=== PATIENT | male | born 2000 ===

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

== ENCOUNTER 2018-05-17 15:50 | Emergency (ER) | payer MEDICAID, OTHER ==
[2018-05-17 15:53] VITALS: BMI 17.9
[2018-05-17 15:57] VITALS: BP 108/70; PULSE 95; RESP 18; TEMP 99.1; O2SAT 98
--- NOTE | 2018-05-17 16:10 | C.PDOC ---
Time Seen by Provider: 05/17/18 15:58 Chief Complaint (Nursing): Dental Pain Past Medical History Vital Signs: Last Vital Signs Temp 99.1 F 05/17/18 15:54 Pulse 95 H 05/17/18 15:54 Resp 18 05/17/18 15:54 BP 108/70 05/17/18 15:54 Pulse Ox 98 05/17/18 15:54 Surgical History: Appendectomy - [facility] Procedures RESECTION OF APPENDIX, PERCUTANEOUS ENDOSCOPIC APPROACH (08/03/16) Family History: States: Unknown Family Hx - Social History Hx Tobacco Use: No Hx Alcohol Use: Yes Hx Substance Use: No - Immunization History Hx Tetanus Toxoid Vaccination: No Hx Influenza Vaccination: No Hx Pneumococcal Vaccination: No ED Course And Treatment O2 Sat by Pulse Oximetry: 98 Disposition - Disposition
--- NOTE | 2018-05-17 16:14 | C.PDOC ---
History Of Present Illness Pt c/o right jaw area pain. Denies recent injury. He states that he feels a clicking in that area for a long time, but pain started yesterday. Time Seen by Provider: 05/17/18 15:58 Chief Complaint (Nursing): ENT Problem History Per: Patient Onset/Duration Of Symptoms: Days (1) Current Symptoms Are (Timing): Still Present Severity: Moderate Past Medical History Reviewed: Historical Data, Nursing Documentation, Vital Signs Vital Signs: Last Vital Signs Temp 99.1 F 05/17/18 15:54 Pulse 95 H 05/17/18 15:54 Resp 18 05/17/18 15:54 BP 108/70 05/17/18 15:54 Pulse Ox 98 05/17/18 15:54 - Medical History PMH: No Chronic Diseases Surgical History: Appendectomy - [facility] Procedures RESECTION OF APPENDIX, PERCUTANEOUS ENDOSCOPIC APPROACH (08/03/16) Family History: States: Unknown Family Hx - Social History Hx Tobacco Use: No Hx Alcohol Use: Yes Hx Substance Use: No - Immunization History Hx Tetanus Toxoid Vaccination: No Hx Influenza Vaccination: No Hx Pneumococcal Vaccination: No Review Of Systems Except As Marked, All Systems Reviewed And Found Negative. Constitutional: Negative for: Fever, Weakness ENT: Negative for: Ear Discharge, Throat Pain Cardiovascular: Negative for: Chest Pain Respiratory: Negative for: Shortness of Breath Gastrointestinal: Negative for: Vomiting, Abdominal Pain Musculoskeletal: Negative for: Neck Pain Skin: Negative for: Rash Neurological: Negative for: Weakness, Numbness, Headache Physical Exam - Physical Exam Appears: Non-toxic, No Acute Distress Skin: Normal Color, Warm, Dry, No Rash 1 - Pain at TMJ area when opening mouth. No tenderness. Head: Atraumatic, Normacephalic Eye(s): bilateral: Normal Inspection, PERRL, EOMI Ear(s): Right: Normal Oral Mucosa: Moist, No Drooling, No Trismus Tongue: Normal Appearing Lips: Normal Appearing Teeth: No Tender To Palpation Gingiva: Normal Appearing, No Abscess Throat: Normal Neck: Normal ROM, Supple Lymphatic: No Adenopathy Extremity: Normal ROM Neurological/Psych: Oriented x3, Normal Speech, Normal Cognition, Normal Cranial Nerves, Normal Motor, Normal Sensation ED Course And Treatment O2 Sat by Pulse Oximetry: 98 Pulse Ox Interpretation: Normal Disposition Counseled Patient/Family Regarding: Diagnosis, Need For Followup, Rx Given - Disposition Referrals: [facility] at [facility] [Outside] Disposition: HOME/ ROUTINE Disposition Time: 16:16 Condition: STABLE Additional Instructions: Follow up with an Oral MaxilloFacial Surgeon or in the clinic for further evaluation and treatment. Return to the ER if you develop worsening of symptoms or if you have any other concerns. Prescriptions: Naproxen 375 mg PO BID PRN #30 tablet PRN Reason: Pain, Moderate (4-7) Instructions: Temporomandibular Joint (TMJ) Disorders (DC) - Clinical Impression Clinical Impression: Disorder of right temporomandibular joint
== END 2018-05-17 16:27 | disposition home or self-care (01) ==
LOC: C.ER 15:50
DX: M26.601 Right temporomandibular joint disorder, unspecified (principal)

== ENCOUNTER 2018-06-13 20:48 | Emergency (ER) | payer MEDICAID, OTHER ==
[2018-06-13 20:49] VITALS: BMI 17.9
[2018-06-13 21:00] VITALS: BP 100/64; PULSE 83; RESP 20; TEMP 98; O2SAT 98
--- NOTE | 2018-06-13 21:30 | C.PDOC ---
History Of Present Illness 18 y/o male c/o throat pain x 2 days, left side worse than right. with no fever , pt used spray in throat; did not take any antibiotics at home contrary to triage. denies fever, chills, cough, ear pain, rhinorrhea. no sick contacts. Time Seen by Provider: 06/13/18 21:00 Chief Complaint (Nursing): ENT Problem History Per: Patient History/Exam Limitations: None Onset/Duration Of Symptoms: Days (2) Current Symptoms Are (Timing): Still Present Quality (Mouth/Throat): Redness Past Medical History Reviewed: Historical Data, Nursing Documentation, Vital Signs Vital Signs: Last Vital Signs Temp 98 F 06/13/18 20:57 Pulse 83 06/13/18 20:57 Resp 20 06/13/18 20:57 BP 100/64 06/13/18 20:57 Pulse Ox 98 06/13/18 21:35 - Medical History PMH: No Chronic Diseases Surgical History: Appendectomy - [facility] Procedures RESECTION OF APPENDIX, PERCUTANEOUS ENDOSCOPIC APPROACH (08/03/16) Family History: States: Unknown Family Hx - Social History Hx Tobacco Use: No Hx Alcohol Use: Yes Hx Substance Use: No - Immunization History Hx Tetanus Toxoid Vaccination: No Hx Influenza Vaccination: No Hx Pneumococcal Vaccination: No Review Of Systems Constitutional: Negative for: Fever, Chills ENT: Positive for: Throat Pain. Negative for: Ear Pain, Nose Pain, Nose Discharge, Nose Congestion, Throat Swelling Cardiovascular: Negative for: Chest Pain Respiratory: Negative for: Cough, Shortness of Breath Skin: Negative for: Rash Neurological: Negative for: Weakness, Numbness Physical Exam - Physical Exam Appears: Non-toxic, No Acute Distress Skin: Warm, Dry Head: Atraumatic, Normacephalic Nose: No Discharge Oral Mucosa: Moist Tongue: Normal Appearing Lips: Normal Appearing, No Swelling Teeth: Normal Dentition Gingiva: Normal Appearing Throat: Erythema (pharynx erythematous left enlarged tonsil, no exudate. ) Neck: Supple Lymphatic: Adenopathy (tender left submandibular adenopathy) Cardiovascular: Rhythm Regular, No Murmur Respiratory: No Decreased Breath Sounds, No Wheezing Neurological/Psych: Oriented x3, Normal Speech, Normal Cognition ED Course And Treatment O2 Sat by Pulse Oximetry: 98 Medical Decision Making Medical Decision Makin18 y/o male with sore throat; no fever. rapid strep neg. d/c home with supportive care. Disposition Counseled Patient/Family Regarding: Studies Performed, Diagnosis, Need For Followup, Rx Given - Disposition Referrals: Jovanny Manuel MD [Medical Doctor] - Disposition: HOME/ ROUTINE Disposition Time: 21:32 Condition: GOOD Additional Instructions: Please take Tylenol or ibuprofen for pain if needed every 6 hours. Gargle with warm salty water several times a day. Drink tea with honey and lemon. Follow up with Dr Manuel in 1-2 days. Return to ER for any worsening symptoms. Prescriptions: Acetaminophen [Tylenol 325mg tab] 650 mg PO Q6 #30 tab Instructions: Sore Throat, Adult (DC) Forms: [facility] (Lao), General Discharge Instructions - Clinical Impression Clinical Impression: Pharyngitis
== END 2018-06-13 21:44 | disposition home or self-care (01) ==
LOC: C.ER 20:48
DX: J02.9 Acute pharyngitis, unspecified (principal)

== ENCOUNTER 2018-06-16 05:20 | Emergency (ER) | payer MEDICAID ==
[2018-06-16 05:20] VITALS: BMI 17.9
[2018-06-16 05:29] VITALS: TEMP 98.1
[2018-06-16] MEDS ORDERED: Lactated Ringer's 1,000 ML IVB STA (05:54)
[2018-06-16 06:13] LABS: BASO % 0.4 % (0.0-2.0); EOS % 0.1 % (0.0-4.0); HEMOGLOBIN 14.7 g/dL (12.0-18.0); LYMPH # 1.1 K/uL (1.0-4.3); LYMPH % 12.8 % (20.0-40.0); MEAN CELL VOLUME 89.1 fL (80.0-94.0); MEAN CORPUSCULAR HEMOGLOBIN 31.7 pg (27.0-31.0); MEAN CORPUSCULAR HGB CONC 35.6 g/dL (33.0-37.0); MEAN PLATELET VOLUME 7.7 fL (7.2-11.7); MONO # 0.5 K/uL (0.0-0.8); MONO % 6.5 % (0.0-10.0); NEUT # 6.7 K/uL (1.8-7.0); NEUT % 80.2 % (50.0-75.0); RBC 4.64 Mil/uL (4.40-5.90); RED CELL DISTRIBUTION WIDTH 11.8 % (11.5-14.5); WHITE BLOOD COUNT 8.3 K/uL (4.8-10.8)
[2018-06-16] MEDS ORDERED: Lactated Ringer's 1,000 ML ONE (06:22)
[2018-06-16 06:25] LABS: URINE BILIRUBIN NEGATIVE (NEGATIVE); URINE BLOOD NEGATIVE (NEGATIVE); URINE CLARITY Clear (Clear); URINE COLOR Yellow (YELLOW); URINE GLUCOSE (UA) NORMAL (Normal); URINE LEUKOCYTE ESTERASE NEG Leu/uL (Negative); URINE PROTEIN NEGATIVE (NEGATIVE); URINE UROBILINOGEN NORMAL mg/dL (0.2-1.0)
--- NOTE | 2018-06-16 06:32 | C.PDOC ---
History Of Present Illness Pt states that he "feels weird" after smoking marijuana tonight. Time Seen by Provider: 06/16/18 05:30 Chief Complaint (Nursing): Substance Abuse History Per: Patient Onset/Duration Of Symptoms: Hrs (Just PATIENT REGISTRAR) Current Symptoms Are (Timing): Still Present Suicide/Self Injury Attempted (Context): None Modifying Factor(s): Alcohol, Marijuana Severity: Moderate Associated Symptoms: denies: Suicidal Thoughts, Suicidal Plan Additional History Per: Prior Records Past Medical History Reviewed: Historical Data, Nursing Documentation, Vital Signs Vital Signs: Last Vital Signs Temp 98.1 F 06/16/18 05:26 Pulse 115 H 06/16/18 06:25 Resp 18 06/16/18 06:25 BP 119/62 06/16/18 06:25 Pulse Ox 100 06/16/18 06:55 - Medical History PMH: No Chronic Diseases Surgical History: Appendectomy - [facility] Procedures RESECTION OF APPENDIX, PERCUTANEOUS ENDOSCOPIC APPROACH (08/03/16) Family History: States: Unknown Family Hx - Social History Hx Tobacco Use: No Hx Alcohol Use: Yes Hx Substance Use: Yes - Immunization History Hx Tetanus Toxoid Vaccination: No Hx Influenza Vaccination: No Hx Pneumococcal Vaccination: No Review Of Systems Except As Marked, All Systems Reviewed And Found Negative. Constitutional: Negative for: Fever Cardiovascular: Positive for: Palpitations Respiratory: Negative for: Hemoptysis Gastrointestinal: Negative for: Vomiting, Abdominal Pain Musculoskeletal: Negative for: Neck Pain Skin: Negative for: Rash Neurological: Negative for: Weakness, Numbness, Seizures Physical Exam - Physical Exam Appears: Non-toxic, No Acute Distress Skin: Normal Color, Warm, Dry, No Rash Head: Atraumatic, Normacephalic Eye(s): bilateral: PERRL (Dilated), EOMI Neck: Normal ROM, Supple Cardiovascular: Rhythm Regular (tachycardia) Respiratory: Normal Breath Sounds, No Accessory Muscle Use Gastrointestinal/Abdominal: Soft, No Tenderness Extremity: Normal ROM, No Deformity Neurological/Psych: Oriented x3, Normal Motor, Normal Sensation ED Course And Treatment - Laboratory Results Result Diagrams: 06/16/18 06:10 06/16/18 06:10 ECG: Interpreted By Me, Viewed By Me ECG Rhythm: Sinus Tachycardia, Nonspecific Changes Rate From EC O2 Sat by Pulse Oximetry: 100 Pulse Ox Interpretation: Normal Disposition - Disposition Disposition Time: 07:00 Condition: FAIR - Clinical Impression Clinical Impression: Drug intoxication Physician Patient Turnover Patient Signed Over To: Rohit Tovar Handoff Comments: to reassess/dispo pt after meds/fluids.
[2018-06-16 06:33] LABS: ALB/GLOB RATIO 1.9 (1.0-2.1); ALT/SGPT 19 U/L (21-72); AST/SGOT 23 U/L (17-59); BLOOD UREA NITROGEN 14 mg/dL (9-20); CALCIUM 9.7 mg/dl (8.6-10.4); GFR AFRICAN-AMERICAN > 60; GFR NON-AFRICAN AMERICAN > 60
[2018-06-16 06:39] LABS: BARBITURATES, UR NEGATIVE (NEGATIVE); BENZODIAZEPINES, UR NEGATIVE (NEGATIVE); OPIATES, UR NEGATIVE (NEGATIVE); PHENCYCLIDINE, UR NEGATIVE (NEGATIVE)
[2018-06-16 07:42] VITALS: PULSE 112; RESP 20
[2018-06-16 09:09] VITALS: BP 131/65; O2SAT 99
--- NOTE | 2018-06-18 00:06 | CARD ---
APPROVED REPORT Date of service: 06/16/2018 EKG Measurement Heart [id number] <Conclusion> Sinus tachycardia Biatrial enlargement T wave abnormality, consider anterolateral ischemia Abnormal ECG
== END 2018-06-16 09:10 | disposition home or self-care (01) ==
LOC: C.ER 05:20
DX: F19.129 Other psychoactive substance abuse with intoxication, unspecified (principal)
CPT/HCPCS: 80053; 80320; 80324; 80345; 80346; 80349; 80353; 80358; 80361; 81001; 83735; 83992; 85025; 93005; 96374; 99285; J2060; J7120

== ENCOUNTER 2018-07-09 18:45 | Emergency (ER) | payer MEDICAID ==
[2018-07-09 18:45] VITALS: BMI 17.9
[2018-07-09 18:53] VITALS: BP 120/76; PULSE 62; RESP 20; TEMP 97.9; O2SAT 99
--- NOTE | 2018-07-09 19:18 | C.PDOC ---
History Of Present Illness 18 year old male patient presents to the ER with c/o sore throat and tonsil swelling. Patient reports the left side of his throat has been bothering him for a couple of weeks and recently the right has started to hurt too. Has not taken any medication for the pain including antibiotics in the last month. Patient denies fever, cough, congestion, difficulty breathing, difficulty swallowing or neck stiffness. Time Seen by Provider: 07/09/18 18:55 Chief Complaint (Nursing): ENT Problem History Per: Patient, Family (dad) History/Exam Limitations: None Onset/Duration Of Symptoms: Days Current Symptoms Are (Timing): Still Present Past Medical History Reviewed: Historical Data, Nursing Documentation, Vital Signs Vital Signs: Last Vital Signs Temp 97.9 F 07/09/18 18:52 Pulse 62 07/09/18 18:52 Resp 20 07/09/18 18:52 BP 120/76 07/09/18 18:52 Pulse Ox 99 07/09/18 19:25 Surgical History: Appendectomy - [facility] Procedures RESECTION OF APPENDIX, PERCUTANEOUS ENDOSCOPIC APPROACH (08/03/16) Family History: States: Unknown Family Hx - Social History Hx Tobacco Use: No Hx Alcohol Use: No Hx Substance Use: No - Immunization History Hx Tetanus Toxoid Vaccination: No Hx Influenza Vaccination: No Hx Pneumococcal Vaccination: No Review Of Systems Except As Marked, All Systems Reviewed And Found Negative. Constitutional: Negative for: Fever ENT: Positive for: Other (b/l tonsil pain). Negative for: Nose Discharge, Nose Congestion Respiratory: Negative for: Cough Physical Exam - Physical Exam Appears: Non-toxic, No Acute Distress Skin: Normal Color, Warm, Dry Head: Atraumatic, Normacephalic Eye(s): bilateral: Normal Inspection, EOMI Ear(s): Bilateral: Normal Nose: Normal Oral Mucosa: Moist Throat: Erythema (pharyngeal and tonsilar), Exudate (left tonsil ), No Drooling , No Mass, Other (uvula midline) Neck: Normal ROM, Supple Chest: Symmetrical Cardiovascular: Rhythm Regular Respiratory: Normal Breath Sounds, No Accessory Muscle Use, Other (speaking in full sentences) Extremity: Normal ROM Neurological/Psych: Oriented x3, Normal Speech Gait: Steady ED Course And Treatment O2 Sat by Pulse Oximetry: 99 (RA) Pulse Ox Interpretation: Normal Progress Note: Plans: -- Amoxicillin. -- Motrin. Reassess: Patient is resting comfortably. Tolerating PO. Afebrile. Patient is referred to ENT doctor for reevaluation. Disposition - Disposition Referrals: Jaden Juarez MD [Staff Provider] - Disposition: HOME/ ROUTINE Disposition Time: 19:17 Condition: STABLE Additional Instructions: Follow up with your doctor or ENT in 1-2 days. Return to ER if symtpoms persist or worsen. Prescriptions: Amoxicillin 875 mg PO BID #20 tablet Ibuprofen [Motrin] 400 mg PO Q6 PRN #20 tab PRN Reason: Fever Instructions: Sore Throat, Adult (DC) Forms: [facility] (Tamazight) - Clinical Impression Clinical Impression: Pharyngitis, Acute bacterial tonsillitis - PA / MANAGER ESTATE / Resident Statement / has reviewed & agrees with the documentation as recorded. - Scribe Statement The provider has reviewed the documentation as recorded by the Scribjames Abbott Do All medical record entries made by the Scribe were at my direction and personally dictated by me. I have reviewed the chart and agree that the record accurately reflects my personal performance of the history, physical exam, medical decision making, and the department course for this patient. I have also personally directed, reviewed, and agree with the discharge instructions and disposition.
== END 2018-07-09 19:42 | disposition home or self-care (01) ==
LOC: C.ER 18:45
DX: J03.90 Acute tonsillitis, unspecified (principal)

== ENCOUNTER 2019-02-07 00:46 | Emergency (ER) | payer MEDICAID ==
[2019-02-07 00:46] VITALS: BMI 17.9
--- NOTE | 2019-02-07 01:01 | C.PDOC ---
History Of Present Illness 19 yr old male w/ hx of appendectomy p/w LLQ abdominal pain, nausea, vomiting, diarrhea. Pt notes LLQ abdominal pain and vomiting started this morning, multiple episodes of nbnb vomiting. No dark or bloody stool. Multiple episodes of diarrhea without recent antibiotics. No fall or trauma. No rlq pain or RUQ pain. No epigastric pain. No fever, chills or night sweats. No back pain. No chest pain or sob. Pt notes he tried taking some OTC medication for GERD that he is unsure the name of, but vomited it. He denies any headache. No other complaints. Time Seen by Provider: 02/07/19 01:00 Chief Complaint (Nursing): Abdominal Pain Past Medical History Surgical History: Appendectomy - [facility] Procedures RESECTION OF APPENDIX, PERCUTANEOUS ENDOSCOPIC APPROACH (08/03/16) Family History: States: Unknown Family Hx - Social History Hx Tobacco Use: No Hx Alcohol Use: No Hx Substance Use: No - Immunization History Hx Tetanus Toxoid Vaccination: No Hx Influenza Vaccination: No Hx Pneumococcal Vaccination: No Review Of Systems Constitutional: Negative for: Fever, Chills, Sweats, Weakness, Malaise, Weight loss Eyes: Negative for: Pain, Vision Change, Conjunctivae Inflammation ENT: Negative for: Ear Pain, Ear Discharge, Nose Pain, Nose Discharge, Nose Congestion, Mouth Pain, Mouth Swelling, Throat Pain Cardiovascular: Negative for: Chest Pain, Palpitations, Orthopnea, Paroxysmal Noc. Dyspnea Respiratory: Negative for: Cough, Shortness of Breath, Hemoptysis, SOB with Excertion, Pleuritic Pain, Sputum Gastrointestinal: Positive for: Nausea, Vomiting, Abdominal Pain, Diarrhea. Negative for: Constipation, Melena, Hematochezia, Hematemesis, Rectal Pain Genitourinary: Negative for: Dysuria, Frequency, Incontinence, Hematuria, Penile Discharge, Scrotal Pain Musculoskeletal: Negative for: Neck Pain, Shoulder Pain, Arm Pain, Back Pain, Hand Pain, Leg Pain Skin: Negative for: Rash, Lesions Neurological: Negative for: Weakness, Numbness, Incoordination, Change in Speech, Confusion, Seizures, Headache Psych: Negative for: Anxiety, Depression, Psychosis, Suicidal ideation Physical Exam - Physical Exam Appears: Well, Non-toxic, No Acute Distress Skin: Normal Color, Warm Head: Atraumatic, Normacephalic, No Laceration Eye(s): bilateral: Normal Inspection, PERRL, EOMI Ear(s): Bilateral: Normal Nose: Normal Oral Mucosa: Moist Tongue: Normal Appearing Lips: Normal Appearing Teeth: Normal Dentition Gingiva: Normal Appearing Throat: Normal, No Erythema, No Exudate Neck: Normal, Normal ROM, Supple, Other (no meningeal signs) Lymphatic: Normal Exam, No Adenopathy Chest: Symmetrical Cardiovascular: Rhythm Regular Respiratory: Normal Breath Sounds, No Rales, No Rhonchi, No Plerual Rub Gastrointestinal/Abdominal: Soft, Tenderness (llq ), No Mass, No Distention, No Guarding, No Rebound Back: Normal Inspection, No CVA Tenderness, No Vertebral Tenderness Extremity: Normal ROM, No Tenderness, No Pedal Edema, No Swelling Extremity: Bilateral: Atraumatic Neurological/Psych: Oriented x3, Normal Speech, Normal Cognition, No Cerebellar Signs, Normal Motor Gait: Steady ED Course And Treatment - Laboratory Results Result Diagrams: 02/07/19 01:31 02/07/19 01:31 Medical Decision Making Medical Decision Makin yr old M w/ hx of appendectomy p/w LLQ abdominal pain. No RLQ / RUQ pain. Likely colitis vs gastritis, pt in NAD, resting comfortably. No recent abx. PT notes last meal was some leftovers BBQ ribs from [employer]. No recent travel or bug bites. He denies any groin complaints. No rashes or penile d/c or testicular pain. Pending imaging and labs. 551 repeat abd pain unremarkable, now non-ttp labs w/ mild elevated WBC, otherwise largely unremarkable +UTI. Pt denies any hx of stds. No back pain on re-exam. No CVAT Ileus on ct but No difficulty stooling and passing gas well. CT w/ enteritis: will rx w/ cipro tolerated PO trial. Clear for d/c home with return indications and f/u Pt agreeable to plan Disposition - Disposition Referrals: Husam Burrows MD [Staff Provider] - Destini Gonzalez MD [Staff Provider] - [facility] [Outside] [facility] [Outside] [facility] [Outside] Disposition Time: 05:46 Condition: GOOD Additional Instructions: JOSE GARCIA, thank you for letting us take care of you today. Your provider was Ismael Shannon and you were treated for VOMITING. The emergency medical care you received today was directed at your acute symptoms. If you were prescribed any m edication, please fill it and take as directed. It may take several days for your symptoms to resolve. Return to the Emergency Department if your symptoms worsen, do not improve, or if you have any other problems. Please contact your doctor or call one of the physicians/clinics you have been referred to that are listed on the Patient Visit Information form that is included in your discharge packet. Bring any paperwork you were given at discharge with you along with any medications you are taking to your follow up visit. Our treatment cannot replace ongoing medical care by a primary care provi azul outside of the emergency department. Thank you for allowing the [facility] team to be part of your care today. If you had an X-Ray or CT scan: A Radiologist will review the ED reading if any change in treatment is needed we will contact you. If you had a blood, urine, or wound culture: It will take several days for the results, if any change in treatment is needed we will contact you. If you had an STI test: It will take 48 hours for the results. Please call after 1 week if you have not heard back. Prescriptions: Ciprofloxacin [Cipro] 500 mg PO BID 10 Days #20 tab Instructions: Urinary Tract Infections in Adults, Gastritis (DC) Forms: Frequency (Omani) - Clinical Impression Clinical Impression: UTI (urinary tract infection), Enteritis, Gastritis
[2019-02-07] MEDS ORDERED: Sodium Chloride 0.9% 1,000 ML IV ONE (01:06)
[2019-02-07 01:34] LABS: BASO % 0.2 % (0.0-2.0); EOS % 0.1 % (0.0-4.0); HEMOGLOBIN 16.2 g/dL (12.0-18.0); LYMPH # 0.3 K/uL (1.0-4.3); LYMPH % 2.3 % (20.0-40.0); MEAN CELL VOLUME 92.6 fL (80.0-94.0); MEAN CORPUSCULAR HEMOGLOBIN 31.8 pg (27.0-31.0); MEAN CORPUSCULAR HGB CONC 34.3 g/dL (33.0-37.0); MEAN PLATELET VOLUME 8.3 fL (7.2-11.7); MONO # 0.7 K/uL (0.0-0.8); MONO % 5.5 % (0.0-10.0); NEUT # 12.2 K/uL (1.8-7.0); NEUT % 91.9 % (50.0-75.0); PLATELET COUNT 245 K/uL (130-400); RBC 5.09 Mil/uL (4.40-5.90); RED CELL DISTRIBUTION WIDTH 12.7 % (11.5-14.5); WHITE BLOOD COUNT 13.2 K/uL (4.8-10.8)
[2019-02-07] MEDS ORDERED: Sodium Chloride 0.9% 1,000 ML ONE (01:46)
[2019-02-07 01:52] LABS: ALB/GLOB RATIO 1.8 (1.0-2.1); ALBUMIN 4.8 g/dL (3.5-5.0); ALT/SGPT 15 U/L (21-72); AST/SGOT 33 U/L (17-59); BLOOD UREA NITROGEN 11 mg/dL (9-20); CALCIUM 9.9 mg/dl (8.6-10.4); GFR NON-AFRICAN AMERICAN > 60; LIPASE 21 U/L (23-300)
[2019-02-07 02:09] LABS: SQUAMOUS EPITHIAL < 1 /hpf (0-5); URINE BILIRUBIN NEGATIVE (NEGATIVE); URINE BLOOD NEGATIVE (NEGATIVE); URINE CLARITY Clear (Clear); URINE COLOR Yellow (YELLOW); URINE GLUCOSE (UA) NORMAL (Normal); URINE LEUKOCYTE ESTERASE TRACE Leu/uL (Negative); URINE PROTEIN NEGATIVE (NEGATIVE); URINE UROBILINOGEN NORMAL mg/dL (0.2-1.0)
[2019-02-07 02:24] LABS: BANDS 2 % (0-2); LYMPHOCYTE 2 % (20-40); MONOCYTE 3 % (0-10); NEUTROPHIL 93 % (50-75); PLATELET ESTIMATE NORMAL (NORMAL); TOTAL CELLS COUNTED 100
[2019-02-07 04:25] VITALS: RESP 16
[2019-02-07 06:13] VITALS: BP 111/70; PULSE 82; TEMP 98.6; O2SAT 98
--- NOTE | 2019-02-07 09:28 | CT ---
Date of service: 02/07/2019 PROCEDURE: CT Abdomen and Pelvis with contrast HISTORY: Left lower quadrant pain COMPARISON: 08/03/2016 TECHNIQUE: CT scan of the abdomen and pelvis was performed after administration of intravenous contrast. Oral contrast was not administered. Coronal and sagittal reformatted images were obtained. Contrast dose: 100 mL Visipaque 320 Radiation dose: Total exam DLP = 228.01 mGy-cm. This CT exam was performed using one or more of the following dose reduction techniques: Automated exposure control, adjustment of the mA and/or kV according to patient size, and/or use of iterative reconstruction technique. FINDINGS: LOWER THORAX: The visualized lungs are clear. LIVER: Normal in size with homogeneous enhancement. No gross lesion or ductal dilatation. GALLBLADDER AND BILE DUCTS: Well distended. No calcified gallstones, wall thickening or pericholecystic fluid. PANCREAS: Normal in size with homogeneous enhancement. No gross lesion or ductal dilatation. SPLEEN: Normal in size and appearance. ADRENALS: No discrete nodule. KIDNEYS AND URETERS: Normal in size with homogeneous enhancement. No hydronephrosis. No solid mass. VASCULATURE: No aortic aneurysm. There are no aortic atherosclerotic calcifications or mural plaque present. BOWEL: Evaluation of the bowel is limited in the absence of oral contrast. There are fluid-filled mildly dilated mid and distal small bowel loops with mild wall enhancement. There is also fluid in the ascending colon. No bowel obstruction. APPENDIX: Normal appendix. PERITONEUM: No free fluid. No free air. LYMPH NODES: No enlarged lymph nodes. BLADDER: Well distended and normal in appearance. REPRODUCTIVE: The prostate gland is normal in size. BONES: No acute fracture. Within normal limits for the patient's age. OTHER FINDINGS: None. IMPRESSION: Findings are most compatible with acute nonspecific infectious/inflammatory enteritis. No bowel obstruction. A preliminary report was provided by [facility].
== END 2019-02-07 06:17 | disposition home or self-care (01) ==
LOC: C.ER 00:46
DX: N39.0 Urinary tract infection, site not specified (principal); K52.9 Noninfective gastroenteritis and colitis, unspecified; K29.70 Gastritis, unspecified, without bleeding
CPT/HCPCS: 74177; 80053; 81001; 83690; 85025; 87086; 96361; 96374; 99285; J2405; J7030